=== PATIENT | female | born 2000 | race Caucasian/White ===

== ENCOUNTER → 2019-01-19 | Day surgery (SDC) | payer OTHER ==
[~2019-01-19] MED LIST: AMOX-CLAV 875-1 EACH PO; INTESTINEX680 M1 PO; PERCOCET 5-3251 EACH PO
== END | disposition home or self-care (01) ==
LOC: ADM 01-16 08:30 → CIR.AMB 07:32
DX: L05.01 Pilonidal cyst with abscess (principal)